=== PATIENT | female | born 1950 | race African-American/Black ===

== ENCOUNTER 2024-06-13 13:38 | Inpatient (IN) | payer MEDICARE, OTHER, SELFPAY ==
[2024-06-13] VITALS (20 sets, daily range): BP systolic 153–211; BP diastolic 82–180; BMI 32.7; BMI 32.0
--- NOTE | 2024-06-13 06:49 | ED.GENMED ---
History of Present Illness
General
Chief Complaint: Breathing Problem
Time Seen by Provider: 06/13/24 06:49
History of Present Illness
History of Present Illness:
73-year-old female presents emergency room due to shortness of breath, nausea, vomiting and intermittent chest pain. This feels similar to her CHF exacerbation
Past History
Past History
ED Past Medical History: CAD, Cancer (Colon cancer), CHF, COPD, HTN, Hypercholesterolemia, GA and Other (Anemia)
ED Past Surgical History: Bowel resection (Colon resection), Cardiac (CABG, 2019. [employer] Bi-V ICD, Pacer/defib, stent) and Gynecological (Hysterectomy)
Patient has exhibited threatening behavior?: No
PSI?: No
Social History
Tobacco: Former smoker (Quit in 1999)
Alcohol: None
Drug: None
Personal:
Living: with family
Family History
Family History: Other
Phy Exam
Physical Exam
Physical Exam:
Physical Exam
General: Mild distress, afebrile
Neck: supple. no meningeal signs. normal posterior pharynx
Heart: s1/s2 regular rate and rhythm, no murmur. equal radial
pulses. Pacemaker right upper chest
HEENT: Pupils equal round reactive to light, EOMI
Lungs: no acute respiratory distress. Rales at bases bilaterally
Abdomen: normal bowel sounds. not tender. no CVAT
Neuro: alert and oriented. no focal neurological deficits cranial nerves II through XII intact
Skin: no rash
Psychiatric: well kept. interactive and cooperative
Extremities: no edema. no calf tenderness. negative homans. good distal pulses
Scores
Heart Failure Risk
Heart Failure Risk Score: Yes
History of Stroke or TIA: No
History of intubation for respiratory distress: No
Heart rate on ED arrival >/= 110: No
SaO2 <90% on arrival on room air: No
HR >/=110 during 3min walk test (or too ill to perform test): Yes
ECG has acute ischemic changes: No
Urea >/=12mmol/L (BUN 33.6mg/dL): No
Serum CO2>/=35mmol/L: No
Troponin I or T elevated to GA Level (0.4mg/dL): No
NT-proBNP >/=5,000ng/L (5,000pg/ml): Yes
HF Risk Score: 3
Admission Status: HIGH RISK 15.9% Consider SNF treatment or admission to hospital
Heart Score for Chest Pain Patients
STEMI patient?: No
History: Moderately Suspicious
ECG: Nonspecific Repolarization
Age: >/= 65 years
Risk Factors: >/= 3 Risk Factors or History of CAD
Troponin: >1 - <3 x Normal Limit
Heart Score for Chest Pain Patients: 7
Heart Score Risk: 72.7 % MACE over next 6 weeks
Course
Orders/Labs/Results
Orders:
Orders
06/13/24
Electrocardiogram (*1) Stat
Reason for Study: Chest Pain
Comment: DONE
06/13/24 06:45
Electrocardiogram (*1) Urgent
Reason for Study: Other
Other Reason for Exam: Respiratory Distress
Cardiac Monitoring- Treatment ONCE
EKG- Treatment ONCE
IV Insert/Care/Rem.- Treatment PRN
O2 Therapy [RESP] Urgent
Titrate/Wean O2 to maintain O2 sat greater than (%): 93
Special Instructions: TO MAINTAIN CONTINUOUS O2 SATS >/= 93%
Pulse Ox/cont/shift [RESP] Urgent
Quantity: 1
Special Instructions: continuous pulse ox
06/13/24 06:52
Interrogate Pacemaker- Treatment ONCE
Comment: [employer]
06/13/24 07:02
Nitroglycerin Sublingual [Nitrostat (Sublingual)] 0.4 mg SL [id number] PRN
06/13/24 07:03
CR Chest Portable - 1 View Urgent
Comment:
Reason For Exam: short of breath, chest pain
Reason Study Needs to be Portable: Patient Unstable
06/13/24 07:07
Complete Blood Count/With Diff Urgent
Comprehensive Metabolic Panel Urgent
NT-proBNP Urgent
Troponin I Urgent
06/13/24 08:31
Azithromycin 500 mg/250 ml [Zithromax Infusion] 500 mg in 250 ml IV NOW
CefTRIAXone [Rocephin] 2,000 mg IV NOW STA
Furosemide [Lasix] 40 mg IV NOW STA
06/13/24 09:47
Lactic Acid Q4H
Comment: CANCEL 2nd LACTIC ACID IF 1st LACTIC ACID IS LESS THAN 2
Blood Culture Q30M
RONALD Source: Blood/Venous
Specimen Description:
Blood Culture Q30M
RONALD Source: Blood/Venous
Specimen Description:
06/13/24 11:12
Morphine Sulfate 4 mg IV NOW STA
06/13/24 11:13
Morphine Sulfate 4 mg .ROUTE .STK-MED ONE
06/13/24 11:25
Troponin I Urgent
06/13/24 12:45
Lactic Acid Q4H
Comment: CANCEL 2nd LACTIC ACID IF 1st LACTIC ACID IS LESS THAN 2
06/13/24 13:07
Admit/Transfer Patient As Directed
Co-Sign Provider:
Level of Care: Inpatient admission
Assign to:: Telemetry
Physician / Group: Malachi
Diagnosis: Pneumonia and possible CHF
Reason for Telemetry: Acute Heart Failure
Date to Stop Telemetry: 06/16/24
Time to Stop Telemetry: 11:00
Reason for Hospitalization: see progress note
Expected length of stay greater than two midnights?: Yes
ELOS- Estimated Length of Stay in days: 3
I certify the patient meets the requirements for IP care: Yes
06/13/24 13:08
PRN Pain Medication Management As Directed
May give lesser potent ordered pain med per pt: Yes
preference::
Protocol:: Medication orders for pain may be administered in a
manner that supports deferring to patient preference
when the pt is:
- Requesting an ordered lesser potent pain medication.
Least to most potent pain medications are defined
as: acetaminophen < NSAID < tramadol < opioids
(morphine, oxycodone, hydromorphone).
- Requesting a lesser dose of the same medication IF
ORDERED.
- Requesting a less intrusive route of administration
if both routes are prescribed by the provider (PO <
IV).
06/13/24 13:10
Code Status As Directed
Resuscitation Status: Full Code
06/13/24 13:26
Carvedilol [Coreg] 25 mg PO NOW STA
HydrALAZINE [Apresoline] 25 mg PO NOW STA
06/13/24 13:36
Acetaminophen [Tylenol] 650 mg PO Q4HPRN PRN
Morphine Sulfate 2 mg IV Q4HPRN PRN
Oxycodone [Roxicodone] 5 mg PO Q4HPRN PRN
06/16/24 11:00
DC Protocol for Telemetry ONCE
Abnormal Lab Results
06/13/24 06/13/24
07:07 11:25
WBC 12.7 H 10^3/uL
(4.8-10.8)
RDW 15.5 H %
(11.5-14.5)
MPV 11.0 H fL
(7.4-10.4)
Abs Immat Gran (auto) 0.1 H 10^3/uL
(0-0.05)
Absolute Neuts (auto) 9.7 H 10^3/uL
(1.4-6.5)
Absolute Monos (auto) 1.1 H 10^3/uL
(0.1-0.6)
Immature Gran % 0.6 H %
(0-0.5)
Neutrophils % 76.8 H %
(42.2-75.2)
Lymphocytes % 11.5 L %
(20.5-51.1)
BUN 18 H mg/dl
(7-17)
Glucose 156 H mg/dl
(70-99)
Total Bilirubin 1.8 H mg/dl
(0.2-1.3)
AST 51 H U/L
(14-36)
ALT 85 H U/L
(0-35)
Alkaline Phosphatase 203 H U/L
(38-126)
Troponin I 0.053 H* ng/ml 0.080 H* D ng/ml
06/13/24 07:07
06/13/24 07:07
Vital Signs
Initial and Last Documented VS:
Initial Vital Signs
Pulse Resp Pulse Ox
98 23 98
06/13/24 06:47 06/13/24 06:47 06/13/24 06:47
Last Documented Vital Signs
Temp Pulse Resp BP Pulse Ox
98.6 F 83 19 169/101 94
06/13/24 06:50 06/13/24 11:00 06/13/24 11:00 06/13/24 10:02 06/13/24 11:00
MDM/Problems Addressed
Differential Diagnosis Includes:
ACS, PE, CHF, pneumonia
MDM/Problems Addressed:
73-year-old female with right lower lobe pneumonia, CHF exacerbation, chest pain. IV Lasix, IV Rocephin and Zithromax given. Admit to hospitalist.
*Pulse Oximetry
Patient hypoxic: no
*EKG
Interpreted by ED Provider?: Yes
EKG Intrepretation Date: 06/13/24
EKG Intrepretation Time: 06:47
Interpretation: abnormal
Comparison EKG: no changes
Heart Rate: 91
Rate: normal
Rhythm: av sequential
[place]: normal axis
Interval: normal interval
QRS Pattern: left bundle branch block
Ischemia: no ischemia
*Critical Care Note
Total Time (30-74mins, 75-104mins- exclusive of procedures): Not Applicable
ED Attending Note
-
Portions of this chart may have been created with voice recognition software.� Occasional wrong word or��sound alike� substitutions may have occurred due to the inherent limitations of voice recognition software.
Discharge Plan
Departure
Patient Disposition: Admit
Date of Disposition: 06/13/24
Time of Disposition: 08:30
Admit to: Telemetry
Presentation/result/management discussed w/ accepting MD/DO: Hospitalist
Patient with high blood pressure during this ER visit?: Yes
Condition: Fair
Discharge Problem:
Right lower lobe pneumonia, Acute exacerbation of CHF (congestive heart failure)
Interventions
Interventions:
*Risk Screen - Suicide Last Done: 06/13/24 06:50
*General Assessment Last Done: 06/13/24 06:50
*Neglect/Abuse Screening Last Done: 06/13/24 06:50
ED- Fall Risk Assessment Last Done: 06/13/24 06:50
*ED COVID-19 Vaccine History Last Done: 06/13/24 06:50
[2024-06-13 07:17] LABS: % Basophils 0.2 % (0-2); % Eosinophils 2.1 % (0-6); % Immature Granulocytes 0.6 % (0-0.5); % Lymphocytes 11.5 % (20.5-51.1); % Monocytes 8.8 % (1.7-9.3); % Neutrophils 76.8 % (42.2-75.2); Absolute Eosinophils 0.3 10^3/uL (0-0.7); Absolute Immature Granulocytes 0.1 10^3/uL (0-0.05); Absolute Lymphocytes 1.5 10^3/uL (1.2-3.4); Absolute Monocytes 1.1 10^3/uL (0.1-0.6); Absolute Neutrophils 9.7 10^3/uL (1.4-6.5); Hematocrit 40.3 % (37.0-47.0); Hemoglobin 13.4 g/dL (12.0-16.0); Mean Corp Hgb Conc. 33.3 g/dL (33.0-37.0); Mean Corpuscular Hgb 29.4 pg (27.0-31.0); Mean Corpuscular Volume 88.4 fL (81.0-99.0); Nucleated Red Blood Cells % 0 %; Platelet Count 212 10^3/uL (130-400); Red Blood Cell Count 4.56 10^6/uL (4.20-5.40); Red Cell Dist. Width 15.5 % (11.5-14.5); White Blood Cell Count 12.7 10^3/uL (4.8-10.8)
[2024-06-13] MEDS: NITROSTAT (SUBLINGUAL) 0.4 MG SL (07:29)
[2024-06-13 07:35] LABS: ALT (SGPT) 85 U/L (0-35); AST (SGOT) 51 U/L (14-36); Albumin 4.8 g/dl (3.5-5.0); Alkaline Phosphatase 203 U/L (38-126); Blood Urea Nitrogen 18 mg/dl (7-17); Calcium 9.6 mg/dl (8.4-10.2); Carbon Dioxide 23 mmol/L (22-30); Chloride 106 mmol/L (98-107); Estimated Creatinine Clearance 54 ml/min; Glucose 156 mg/dl (70-99); Potassium 3.6 mmol/L (3.5-5.1); Sodium 141 mmol/L (135-145); Total Bilirubin 1.8 mg/dl (0.2-1.3); Total Protein 7.6 g/dl (6.3-8.2); eGFR > 60.00
[2024-06-13 08:14] LABS: NT-proBNP 6300 pg/ml; Troponin I 0.053 ng/ml
[2024-06-13] MEDS: LASIX 40 MG IV ×2 (10:02→18:53)
[2024-06-13] MEDS: ROCEPHIN 2000 MG IV (10:03)
[2024-06-13] MEDS: ZITHROMAX INFUSION 250 IV (10:03)
[2024-06-13 10:37] LABS: Lactic Acid 1.1 mmol/L (0.7-2.0)
[2024-06-13] MEDS: MORPHINE SULFATE 4 MG IV ×2 (11:17→13:54)
--- NOTE | 2024-06-13 13:17 | HPS.HSE ---
Family Physician
-
Family Physician: Calos Camilo
Chief Complaint
-
Shortness of breath
History of Present Illness
Patient with a history of CAD s/p CABG in history of cardiomyopathy s/p ICD presents with progressive shortness of breath.
It has been ongoing for the last 2 weeks. Associated with that she was feeling her energy levels were low and she was feeling very weak and in fact she was so weak in the last couple of days she was requiring help.
With a cardiac history she went to see proposal analyst twice and apparently had a stress test and she does not know the result and she is supposed to get another test.
She has a cough which is mostly dry. She has some nausea with it. She had some shakes but no fevers. No runny nose. Nobody sick at home.
Her baby sister got buried on Saturday and she was around with the people.
Denies history of pneumonias or lung disease.
Today she was so weak so she came in to hospital.
Since arrival to the hospital she has noticed some sudden chest pain which was 4 out of 10 now 10 out of 10. Is all around. It goes to her back. Goes to jawline in the neck and both arms. She is afraid to move because it brings on pain. Denies
any trauma. She got sublingual nitro which did not make any difference. She got morphine which is helping her. Since her CABG she had no angina.
Medical History
Past Medical History
Past Medical History: Reports Other
Additional Past Medical History:
CAD/RI
[employer] pacer/defibrillator
cardiac stent
CABG,
colon cancer colon resection
CHF COPD, HTN, HLD, anemia, former smoker quit 1998
Past Surgical History: Reports Other (Hysterectomy,[employer] Bi-V ICD pacer/defib 2018)
Social History
Tobacco: Former Smoker (quit 1998)
Alcohol: Occasional
Drug: None
Personal: Single
Living: With Family
Employment: Retired
Family History
Family History: Other (HTN)
Allergies / Home Medications
Allergies reflects when Allergies were last updated in [email or web address].
Home Medications with original date entered in [email or web address]
Allergy/Medication List:
Allergies
Allergy/AdvReac Type Severity Reaction Status Date / Time
Milk Containing Products Allergy Nasal Verified 08/09/22 12:20
congestion
Home Medications
furosemide 20 mg tablet 20 mg PO DAILY Fluid retention/Swelling 10/03/12
aspirin 81 mg tablet,delayed release 81 mg PO DAILY Blood clot prevention/tx 10/08/18
lorazepam 0.5 mg tablet 0.5 mg PO Q8HPRN PRN anxiety 10/08/18
Protonix 40 mg PO DAILY AT 0700 08/09/22
amlodipine 10 mg tablet 10 mg PO DAILY Blood pressure 08/09/22
atorvastatin 40 mg tablet 40 mg PO DAILY High cholesterol 08/09/22
carvedilol 12.5 mg tablet 25 mg PO BID Heart disease/condition 08/09/22
ezetimibe 10 mg tablet 10 mg PO DAILY High cholesterol 08/09/22
valsartan 160 mg tablet 160 mg PO DAILY Blood pressure 08/09/22
Review of Systems
-
A 12 point ROS was completed and negative except as noted: Yes
Physical Exam
Vital Signs
Vital Signs
Temp Pulse Resp BP Pulse Ox
98.6 F 83 19 169/101 94
06/13/24 06:50 06/13/24 11:00 06/13/24 11:00 06/13/24 10:02 06/13/24 11:00
Physical Exam
General: No Apparent Distress
HEENT: Moist mucous membranes
Respiratory: Crackles (Rt base), Non Labored Respirations and Other (Tender in upper anterior axillary line area . Also in mid posterior axillary area . She had more pain with movement of left arm.); No Wheezes or Accessory Resp Muscle Use
Cardiac: S1/S2 and Regular Rhythm
GI: Soft, Non Tender, Non Distended and Normal Bowel Sounds
Musculoskeletal: No Edema
Neuro: AO x 3
Psych: Calm; No Confused
Laboratory Results
-
06/13/24 07:07
06/13/24 07:07
Laboratory Results
Lactic Acid 1.1 mmol/L (0.7-2.0) 06/13/24 09:47
Total Bilirubin 1.8 mg/dl (0.2-1.3) H 06/13/24 07:07
AST 51 U/L (14-36) H 06/13/24 07:07
ALT 85 U/L (0-35) H 06/13/24 07:07
Alkaline Phosphatase 203 U/L (38-126) H 06/13/24 07:07
Troponin I 0.080 ng/ml H* D 06/13/24 11:25
Data Reviewed
-
Lab Data: Labs Reviewed by me
Impression/Plan
-
Shortness of breath-progress in the last 2 weeks now getting worse. She had some cardiac workup as an outpatient including apparently stress test. Patient was a chest x-rays raising concern for right basilar opacity and pneumonia. She also has
associated white count. Apart from that no other infective symptoms. She has also elevated BNP. Unclear if this is all pneumonia but pending culture data will start on empirical antibiotics. Also started on diuretics for possible heart failure
and follow the right basal infiltrate. Check procalcitonin.Hold HCTZ while on IV lasix.
Most recent echo was in 07/2022 with EF 50-55%
Left-sided chest pain started today-based on the clinical symptoms sounds musculoskeletal. 2 sets of troponin shows peak of 0.08. Trend troponins. Follow on telemetry. Treat symptomatically. Consult cardiology.
Abnormal LFTs with no abdominal pain-unclear etiology. Hold statins. Check ultrasound of the abdomen. Continue with the diet.
Hypertension-resume home medication
Hyperlipidemia hold statins
History of CAD s/p CABG-continue with aspirin and beta-zuleima
Full code
[2024-06-13] MEDS: TYLENOL 650 MG PO (13:54)
--- NOTE | 2024-06-13 15:05 | CON.CAR ---
Consultation
Consultation Request
Date/Time Consultation Requested: 06/13/2024 at 1:06 PM
Date/Time Consultation Performed: 06/13/2024 at 2:45 PM
Requesting Provider: Rodrigo Ly MD
Performing Provider: Nolan Meza MD
Reason for Consultation: concern for CHF exacerbation
Medical History
-
Chief Complaint: Shortness of breath
History of Present Illness:
Fany Ho is a 73-year-old female with CAD status post CABG in 2019, hypertension, hyperlipidemia, heart failure with preserved ejection fraction, BiV ICD who presents with shortness of breath. She reports that this has been ongoing for the
past several months and she is being worked up by her neurological surgeon Dr. Salcido at [facility]. She had a stress test last week which she was told was negative for ischemia. She was started on Lasix 40 mg daily about 2 weeks ago and this initially
helped with her shortness of breath but then she had outpatient labs done and was told to stop the Lasix on Saturday to 'give her kidneys a break'. Since then she has been feeling worse again. She denies lower extremity edema but says that she
does not build up fluid there and it is usually in her abdomen. She does feel mildly distended in her abdomen. She does not weigh herself at home. She did not get a chance to take her a.m. meds today and BP here is in the 200s/110s.
Past Medical History
Past Medical History: CAD (s/p CABG, PCI stent ), Cancer, CHF (HFpEF), HTN and Hypercholesterolemia
Social History
Tobacco: Non-Smoker
Family History
Family History: Reviewed & Not Pertinent
Allergies / Home Medications
Allergy/AdvReac Type Severity Reaction Status Date / Time
Milk Containing Products Allergy Nasal Verified 06/13/24 06:48
(Dairy) congestion
[Milk Containing Products]
cholesterol med Allergy Unknown Uncoded 06/13/24 06:49
�Medication �Instructions �Recorded �Confirmed �Type
aspirin 81 mg tablet,delayed 81 mg PO DAILY Blood clot 10/08/18 06/13/24 History
release prevention/tx
lorazepam 0.5 mg tablet 0.5 mg PO Q8HPRN PRN anxiety 10/08/18 06/13/24 History
atorvastatin 40 mg tablet 40 mg PO DAILY High cholesterol 08/09/22 06/13/24 History
carvedilol 12.5 mg tablet 25 mg PO BID Heart 08/09/22 06/13/24 History
disease/condition
ezetimibe 10 mg tablet 10 mg PO DAILY High cholesterol 08/09/22 06/13/24 History
pantoprazole 40 mg tablet,delayed 40 mg PO DAILY ##0 08/09/22 06/13/24 History
release
hydrochlorothiazide 25 mg tablet 25 mg PO DAILY 30 days #30 tabs 08/15/22 06/13/24 Rx
furosemide 40 mg tablet 40 mg PO DAILY 06/13/24 06/13/24 History
hydralazine 25 mg tablet 25 mg PO BID 06/13/24 06/13/24 History
Review of Systems
-
All other systems: Negative unless noted
Physical Exam
Vital Signs
Temp Pulse Resp BP Pulse Ox
98.6 F 83 19 169/101 94
06/13/24 06:50 06/13/24 11:00 06/13/24 11:00 06/13/24 10:02 06/13/24 11:00
Lab Results
06/13/24 07:07
06/13/24 07:07
Troponin I 0.080 ng/ml H* D 06/13/24 11:25
Sxv-U-Zwpiulpkaxe Pept 6300 pg/ml 06/13/24 07:07
Physical Exam
General: Well Developed and Well Nourished
Respiratory: Clear and Non Labored Respirations
Cardiac: S1/S2 and Regular Rhythm; Negative Murmur, Rub, Peripheral Edema or JVD
GI: Soft and Distended
Skin: Warm and Dry
Neuro: AO x 3
Impression / Plan
-
Fany Ho is a 73-year-old female with CAD status post CABG in 2019, hypertension, hyperlipidemia, heart failure with preserved ejection fraction, BiV ICD who presents with shortness of breath.
# Shortness of breath
-Likely multifactorial with mild HFpEF exacerbation (elevated NT proBNP, felt better with Lasix as an outpatient) and possible pneumonia based on chest x-ray and elevated WBC. There also may be some component of pulmonary edema due to hypertensive
emergency (BPs 210s/110s on admission)
-Will diurese with IV Lasix 40 mg twice daily to start. Suspect that she does not have a lot of volume to give as her weight is stable from 2022 and lungs are clear.
-Antibiotics for pneumonia per primary team
-Unlikely to be an anginal equivalent given reportedly normal stress test 1 week ago and very mildly elevated troponins
# Hypertensive urgency versus emergency
-BPs 210s/110s on admission with shortness of breath as above
-Home regimen: Carvedilol 25 mg twice daily, hydralazine 25 mg twice daily
-Resume home meds as above. May need further up titration during this admission
# Troponin elevation due to nonischemic myocardial injury
-Troponin elevation is likely due to severely elevated blood pressures +/- HFpEF exacerbation
-Trend until peak
# HFpEF
-Last echo in 2022 with LVEF 50-55% and moderate to severe LVH. More recent echo with her primary neurological surgeon. Will request these records.
-Diuresis as above
-Consider adding SGLT2 inhibitor and spironolactone. Will consult case management for pricing.
# CAD status post CABG
-Continue aspirin set OR and atorvastatin 40 mg daily
Data Reviewed
-
EKG: Tracing Personally Visualized and interpreted, Discussed with Patient and Discussed with Family
Radiology: Image Personally Visualized and interpreted, Discussed with Patient and Discussed with Family
Medical Tests (Nuc Med, Echo etc): Report Reviewed by me
Labs: Labs Reviewed by me, Discussed with Patient and Discussed with Family
[2024-06-13] MEDS: APRESOLINE 25 MG PO ×2 (15:16→20:31)
[2024-06-13 17:22] LABS: COVID-19 Antigen Negative (Negative)
[2024-06-13] MEDS: COREG 25 MG PO ×2 (17:34→20:31)
--- NOTE | 2024-06-13 18:30 | PTCARENOTE ---
received patient from ED, transferred to bed as patient said she was too weak to stand and walk. placed on tele monitor showing Vpaced rhythm. BP noted to be 185/107. Dr Ly notified and orders obtained for prn hydralazine which was given. plan
of care on going.
[2024-06-13] MEDS: PROTONIX 40 MG PO (18:54)
[2024-06-13] MEDS: LOVENOX 40 MG SC (18:54)
[2024-06-13] MEDS: ASPIR LOW (ENTERIC COATED) 81 MG PO (18:54)
[2024-06-13] MEDS: APRESOLINE 5 MG IV (18:54)
[2024-06-13] MEDS: FLUSH (NSS) 2 FLUSH IV (18:56)
--- NOTE | 2024-06-13 18:58 | EDRN ---
174 - attempted to contact hospitalist Dr. Ly for antiemetic orders as patient vomited 200ml clear liquids that she had drank earlier, and potential further BP medication orders. Dr. Ly no longer on duty.
1745 - attempted to contact the [facility] hospitalist, forwarding the same message Malachi was sent to Dr. Radha Arguelles. Initially the doctor requested this RN to contact the covering CONSTRUCTION COST ESTIMATOR/PA/ attending. Informed him that it was Dr. Ly who is no
longer on duty.
1755 - Dr. Ly responded stating the floor nurse could call him while off duty if the [facility] doctor will not provide orders.
1801 - requested clarification from Dr. Radha Arguelles if he was going to be adding orders at the present time.
1814 - Dr. Radha Arguelles informed this RN that the patient has PO medications that she can take and if BP still high then will add IV medications. Did not specify if he would address the nausea and vomiting the patient experienced.
[2024-06-13 20:19] LABS: Troponin I 0.062 ng/ml
[2024-06-13] MEDS: VIBRAMYCIN 100 MG PO (20:31)
[2024-06-13] MEDS: BENADRYL 6.25 MG IV (20:31)
[2024-06-14 02:25] LABS: Troponin I 0.048 ng/ml
[2024-06-14 03:54] VITALS: BP 164/95
[2024-06-14] MEDS: APRESOLINE 5 MG IV (04:08)
[2024-06-14 06:00] VITALS: BMI 31.4
[2024-06-14 07:55] VITALS: BP 167/101
[2024-06-14] MEDS: LASIX 40 MG IV ×2 (10:20→16:22)
[2024-06-14] MEDS: PROTONIX 40 MG PO (10:21)
[2024-06-14] MEDS: VIBRAMYCIN 100 MG PO ×2 (10:21→19:53)
[2024-06-14] MEDS: ZETIA 10 MG PO (10:21)
[2024-06-14] MEDS: APRESOLINE 25 MG PO ×2 (10:21→19:54)
[2024-06-14] MEDS: COREG 25 MG PO ×2 (10:21→19:54)
[2024-06-14] MEDS: ASPIR LOW (ENTERIC COATED) 81 MG PO (10:21)
--- NOTE | 2024-06-14 10:59 | CM ---
Patient with Hx of cardiomyopathy s/p ICD. Room air. Receiving PO & IV Abx, IV Lasix.
Met with patient who resides with her in a first floor apartment with 5 JAVIER and an additional 4 into their dwelling.
The patient has been independent in ADLs and ambulation until yesterday when she felt SOB and weak and required assistance.
DME - RW, [facility], w/c
Prior VN - patient thought [facility], chart says [facility]
SNF- none
PCP - Calos Camilo
Pharmacy - [facility]
CM Consult: Ochoa Check Farxiga (dapaglifloxin) 10mg daily, Jardiance (empagliflozin) 10mg daily
Spoke with pharmacist, [facility]: These 2 drugs are only covered if brand names are ordered, Farxiga and Jardiance have no copay, and only 1 drug is covered at a time but not both.
Information relayed to Dr Meza and patient.
Message to Dr Ly---> patient may benefit from PT Eval.
Plan follow up after seen by PT.
[2024-06-14] MEDS: TYLENOL 650 MG PO (11:29)
[2024-06-14] MEDS: STERILE WATER FOR INJECTION 10 ML IV (11:29)
[2024-06-14 11:30] VITALS: BP 170/89
[2024-06-14] MEDS: ROCEPHIN 1000 MG IV (11:30)
--- NOTE | 2024-06-14 12:41 | W.PN.CD ---
Today's Communication / Plan
-
Continue Lasix 40 mg IV twice daily pending labs
Start spironolactone and SGLT2 inhibitor pending labs
Monitor BPs
Impression / Plan
-
Fany Ho is a 73-year-old female with CAD status post CABG in 2019, hypertension, hyperlipidemia, heart failure with preserved ejection fraction, BiV ICD who presents with shortness of breath.
[employer]: Dr. Salcido, [facility]
# Shortness of breath
# Acute on chronic HFpEF
-Dyspnea is likely multifactorial with mild HFpEF exacerbation and possible pneumonia
-Last echo in 2022 with LVEF 50-55% and moderate to severe LVH. 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 Will request these records.
-Continue IV Lasix 40 mg twice daily pending labs
-Antibiotics for pneumonia per primary team
-Start spironolactone and SGLT2 inhibitor pending a.m. labs
# Hypertensive urgency versus emergency
-BPs 210s/110s on admission with shortness of breath as above
-Home regimen: Carvedilol 25 mg twice daily, hydralazine 25 mg twice daily
-Continue home regimen. Add spironolactone as above and reassess. May need additional meds.
# Troponin elevation due to nonischemic myocardial injury
-Troponin elevation is likely due to severely elevated blood pressures +/- HFpEF exacerbation
-Peaked at 0.08. Can stop trending.
# CAD status post CABG
-Continue aspirin, ezetimibe and atorvastatin 40 mg daily
Subjective: Feels slightly improved today though still short of breath with any movement. Telemetry with no events overnight. Blood pressure remains elevated in the 160s/100s. Weight is 81.7 kg from 83.2 kg. She received Lasix 40 mg IV twice
daily yesterday. Labs are pending from today.
Physical Exam
Vital Signs/Labs
Vital Signs
Temp Pulse Resp BP Pulse Ox
98.1 F 88 16 170/89 97
06/14/24 11:30 06/14/24 11:30 06/14/24 11:30 06/14/24 11:30 06/14/24 11:30
06/13/24 06/14/24 06/15/24
06:59 06:59 06:59
Actual Weight 85 kg 81.675 kg
06/13/24
07:07
Siw-N-Lbqwiizozng Pept 6300
LAB Results
06/13/24 06/13/24 06/13/24
07:07 11:25 19:49
Troponin I 0.053 H* 0.080 H* D 0.062 H*
06/14/24
01:53
Troponin I 0.048 H*
Physical Exam
Constitutional: No acute distress and Comfortable
Cardiovascular: Rhythm & rate is regular, Pedal edema is absent, S1S2 is normal and Murmur/rub/gallop absent
Respiratory: Respiratory effort normal and Lungs clear to auscul.
Data Reviewed
-
Date of Service: June 14, 2024
Medical Decision Making: Reviewed Test Results, Independent Historian Assessment, Test Interpretation and Review of Case with other Provider
EKG: Tracing Personally Visualized and interpreted
Echo: Report Reviewed by me
Labs: Labs Reviewed by me
Old Records: Requested
[2024-06-14 13:05] LABS: Hematocrit 40.8 % (37.0-47.0); Hemoglobin 13.5 g/dL (12.0-16.0); Mean Corp Hgb Conc. 33.1 g/dL (33.0-37.0); Mean Corpuscular Volume 87.6 fL (81.0-99.0); Platelet Count 208 10^3/uL (130-400); Red Blood Cell Count 4.66 10^6/uL (4.20-5.40); Red Cell Dist. Width 15.6 % (11.5-14.5); White Blood Cell Count 10.4 10^3/uL (4.8-10.8)
[2024-06-14 13:19] LABS: ALT (SGPT) 64 U/L (0-35); AST (SGOT) 40 U/L (14-36); Albumin 4.4 g/dl (3.5-5.0); Alkaline Phosphatase 155 U/L (38-126); Blood Urea Nitrogen 26 mg/dl (7-17); Calcium 9.6 mg/dl (8.4-10.2); Carbon Dioxide 25 mmol/L (22-30); Chloride 102 mmol/L (98-107); Estimated Creatinine Clearance 48 ml/min; Glucose 165 mg/dl (70-99); Potassium 3.4 mmol/L (3.5-5.1); Sodium 138 mmol/L (135-145); Total Bilirubin 1.2 mg/dl (0.2-1.3); Total Protein 7.3 g/dl (6.3-8.2); eGFR 53.72
[2024-06-14 13:34] LABS: Procalcitonin 0.16 ng/ml (0.0-0.25)
[2024-06-14] MEDS: ALDACTONE 25 MG PO (14:00)
[2024-06-14 15:30] VITALS: BP 121/71
--- NOTE | 2024-06-14 15:33 | W.PN.HOSP.TC ---
Today's Communication/Plan
-
Continue with IV Lasix.
Follow LFTs closely.
Assessment / Plan
Assessment / Plan
Shortness of breath-progress in the last 2 weeks now getting worse. She had some cardiac workup as an outpatient including apparently stress test. Patient was a chest x-rays raising concern for right basilar opacity and pneumonia. She also has
associated white count. Apart from that no other infective symptoms. She has also elevated BNP. Unclear if this is all pneumonia but pending culture data will start on empirical antibiotics.Procal is normal. Also started on diuretics for
possible heart failure and follow the right basal infiltrate. .Hold HCTZ while on IV lasix.
Appt cards input
Most recent echo was in 07/2022 with EF 50-55%
Left-sided chest pain started today-based on the clinical symptoms sounds musculoskeletal. 4 sets of troponin shows peak of 0.08. ollow on telemetry. Treat symptomatically. Cardiology following
Abnormal LFTs with no abdominal pain-unclear etiology. Hold statins. ultrasound of the abdomen shows gallbladder sludge. No stones or CBD dilatation. Improving LFTs.. Continue with the diet.
Hypertension-resume home medication
Hyperlipidemia hold statins
History of CAD s/p CABG-continue with aspirin and beta-zuleima
Full code
Anticipated Discharge: 24 - 48 hours
Subjective/Interval History
-
Date of Service: June 14, 2024
Says breathing improved.
Complains of sore throat. Cough with some phlegm.
The left-sided chest and back pain has improved.
Last night she was complaining of vomiting. At home she was feeling bloated. Some decreased appetite. She was able to eat something today. She had 1 bowel movement yesterday.
Objective Data
-
Labs:
Laboratory Results
06/14/24
12:53
WBC 10.4
Hgb 13.5
Hct 40.8
Plt Count 208
Sodium 138
Potassium 3.4 L
Chloride 102
Carbon Dioxide 25
BUN 26 H
Creatinine 1.1 H
Glucose 165 H
Calcium 9.6
Total Bilirubin 1.2
AST 40 H
ALT 64 H
Alkaline Phosphatase 155 H
Vital Signs:
Vital Signs
Temp Pulse Resp BP Pulse Ox
98.1 F 86 16 170/82 97
06/14/24 11:30 06/14/24 14:00 06/14/24 11:30 06/14/24 14:00 06/14/24 11:30
I&O
06/13/24 06/14/24 06/15/24
06:59 06:59 06:59
Intake Total 240 / 240
Balance 240 / 240
Review of Systems
-
Constitutional: Denies Fever
Abdomen/GI: Denies Abdominal Pain
Genitourinary: Denies Dysuria
Neuro: Denies Dizzy
Physical Exam
-
General: No Apparent Distress
HEENT: Moist Mucous Membranes
Respiratory: Clear to Auscultation
Cardiac: Regular Rhythm and S1/S2
GI: Soft and Nontender (no RUQ tenderness)
Neuro: AO x 3
Data Reviewed
-
Ultrasound: Report Reviewed by me (US abdomen)
Labs: Labs Reviewed by me
[2024-06-14] MEDS: KCL 40 MEQ PO (16:22)
[2024-06-14] MEDS: LOVENOX 40 MG SC (17:54)
[2024-06-14 19:50] VITALS: BP 136/69
[2024-06-14] MEDS: ATIVAN 0.5 MG PO (19:54)
[2024-06-14] MEDS: ROXICODONE 5 MG PO (23:32)
[2024-06-14 23:45] VITALS: BP 120/58
[2024-06-15 03:26] VITALS: BP 129/93
[2024-06-15 06:00] VITALS: BMI 31.7
[2024-06-15 07:06] VITALS: BP 148/97
[2024-06-15 07:47] LABS: Hematocrit 39.9 % (37.0-47.0); Hemoglobin 13.3 g/dL (12.0-16.0); Mean Corp Hgb Conc. 33.3 g/dL (33.0-37.0); Mean Corpuscular Hgb 29.3 pg (27.0-31.0); Mean Corpuscular Volume 87.9 fL (81.0-99.0); Mean Platelet Volume 11.3 fL (7.4-10.4); Platelet Count 225 10^3/uL (130-400); Red Blood Cell Count 4.54 10^6/uL (4.20-5.40); Red Cell Dist. Width 15.7 % (11.5-14.5); White Blood Cell Count 9.2 10^3/uL (4.8-10.8)
[2024-06-15 08:14] LABS: ALT (SGPT) 56 U/L (0-35); AST (SGOT) 37 U/L (14-36); Albumin 4.4 g/dl (3.5-5.0); Alkaline Phosphatase 150 U/L (38-126); Blood Urea Nitrogen 39 mg/dl (7-17); Calcium 9.6 mg/dl (8.4-10.2); Carbon Dioxide 22 mmol/L (22-30); Chloride 105 mmol/L (98-107); Estimated Creatinine Clearance 31 ml/min; Glucose 114 mg/dl (70-99); Potassium 4.1 mmol/L (3.5-5.1); Sodium 139 mmol/L (135-145); Total Protein 7.1 g/dl (6.3-8.2); eGFR 31.86
--- NOTE | 2024-06-15 08:50 | W.PN.CD ---
Today's Communication / Plan
-
hold diuresis
cont. ismael
TTE
Impression / Plan
-
Fany Ho is a 73-year-old female with CAD status post CABG in 2019, hypertension, hyperlipidemia, heart failure with preserved ejection fraction, BiV ICD who presents with shortness of breath.
Director Of Physical Security: Dr. Salcido, [facility]
# BERNICE
-overdiuresis +/- addition of spio?
-will hold diuresis today
# Shortness of breath
# Acute on chronic HFpEF
-Dyspnea is likely multifactorial with mild HFpEF exacerbation and possible pneumonia
-Last echo in 2022 with LVEF 50-55% and moderate to severe LVH. 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 Will request these records. TTE today.
-lasix 40 IV yesterday, hold diuresis today in setting of BERNICE
-Antibiotics for pneumonia per primary team
-cont. aldactone, consider further GDMT pending renal recovery
# Hypertensive urgency versus emergency
-BPs 210s/110s on admission with shortness of breath as above
-better controlled overnight
-Home regimen: Carvedilol 25 mg twice daily, hydralazine 25 mg twice daily
-Continue home regimen + aldactone
# Troponin elevation due to nonischemic myocardial injury
-Troponin elevation is likely due to severely elevated blood pressures +/- HFpEF exacerbation
-Peaked at 0.08. Can stop trending.
# CAD status post CABG
-Continue aspirin, ezetimibe and atorvastatin 40 mg daily
Subjective: Feels slightly improved today though still some orthopnea. Blood pressure elevated overnight but controlled this morning. Weight up about ~0.5 kg. She received Lasix 40 mg IV twice daily yesterday.
Physical Exam
Vital Signs/Labs
Vital Signs
Temp Pulse Resp BP Pulse Ox
36.6 C 63 20 129/93 97
06/15/24 03:26 06/15/24 03:26 06/15/24 03:26 06/15/24 03:26 06/15/24 03:26
06/14/24 06/15/24 06/16/24
06:59 06:59 06:59
Actual Weight 81.675 kg 82.327 kg
06/15/24 07:25
06/15/24 07:25
06/13/24
07:07
Pub-H-Zyicqvzhvmi Pept 6300
LAB Results
06/13/24 06/13/24 06/13/24
07:07 11:25 19:49
Troponin I 0.053 H* 0.080 H* D 0.062 H*
06/14/24
01:53
Troponin I 0.048 H*
Physical Exam
Constitutional: No acute distress
Cardiovascular: Rhythm & rate is regular
Respiratory: Respiratory effort normal
Data Reviewed
-
Date of Service: June 15, 2024
Medical Decision Making: Reviewed Test Results
EKG: Tracing Personally Visualized and interpreted
X-Ray/CT/US/MRI/NUC/PET: Image Personally Visualized and interpreted
Labs: Labs Reviewed by me
[2024-06-15] MEDS: APRESOLINE 25 MG PO ×2 (09:06→20:04)
[2024-06-15] MEDS: VIBRAMYCIN 100 MG PO ×2 (09:06→20:03)
[2024-06-15] MEDS: ALDACTONE 25 MG PO (09:07)
[2024-06-15] MEDS: ZETIA 10 MG PO (09:07)
[2024-06-15] MEDS: PROTONIX 40 MG PO (09:07)
[2024-06-15] MEDS: COREG 25 MG PO ×2 (09:07→20:03)
[2024-06-15] MEDS: ASPIR LOW (ENTERIC COATED) 81 MG PO (09:08)
[2024-06-15] MEDS: TYLENOL 650 MG PO (09:09)
[2024-06-15] MEDS: LASIX IV (09:11)
[2024-06-15 11:45] VITALS: BP 155/83
[2024-06-15] MEDS: ROCEPHIN 1000 MG IV (12:45)
[2024-06-15] MEDS: STERILE WATER FOR INJECTION 10 ML IV (12:45)
--- NOTE | 2024-06-15 14:33 | W.PN.HOSP.TC ---
Today's Communication/Plan
-
Hold diuretics. Follow creatinine.
Repeat chest x-ray. Echo pending.
Consult GI.
Assessment / Plan
Assessment / Plan
Shortness of breath-progress in the last 2 weeks now getting worse. She had some cardiac workup as an outpatient including apparently stress test. Patient was a chest x-rays raising concern for right basilar opacity and pneumonia. She also has
associated white count. Apart from that no other infective symptoms. Procal is normal . Flu/covid/blood cx neg .Unclear if this is all pneumonia . Lost wt with diuresis .Rpt CXR to follow on the opacity ,if it all resolved will dc abx
Acute CHF decompensation
Most recent echo was in 07/2022 with EF 50-55%
Lost 6 pounds of weight. Diuretics on hold because of elevation of creatinine. Spironolactone added. Echo pending. Cardiology following.
Indeterminate troponins-suspected nonischemic myocardial injury. Patient without chest pain.
Left-sided chest pain started today-based on the clinical symptoms sounds musculoskeletal. 4 sets of troponin shows peak of 0.08. Treat symptomatically. Cardiology following
BERNICE
Suspect secondary to overdiuresis. Diuretics on hold.
Repeat in AM.
Abnormal LFTs with no abdominal pain-unclear etiology. Hold statins. ultrasound of the abdomen shows gallbladder sludge. No stones or CBD dilatation. Improving LFTs.. Continue with the diet. Consult GI for an opinion.
Hypertension-resume home medication
Hyperlipidemia hold statins
History of CAD s/p CABG-continue with aspirin and beta-zuleima
Full code
Anticipated Discharge: 24 - 48 hours
Subjective/Interval History
-
Date of Service: June 15, 2024
Patient feels less short of breath. Able to walk to the bathroom but still notices some shortness of breath.
No chest pains or palpitations.
No further vomiting. [place] nauseous but able to tolerate diet. Denies abdominal pain.
Has not had a bowel movement. Feels constipated.
Objective Data
-
Labs:
Laboratory Results
06/15/24
07:25
WBC 9.2
Hgb 13.3
Hct 39.9
Plt Count 225
Sodium 139
Potassium 4.1
Chloride 105
Carbon Dioxide 22
BUN 39 H
Creatinine 1.7 H
Glucose 114 H
Calcium 9.6
Total Bilirubin 1.0
AST 37 H
ALT 56 H
Alkaline Phosphatase 150 H
Vital Signs:
Vital Signs
Temp Pulse Resp BP Pulse Ox
98.1 F 69 22 155/83 98
06/15/24 11:45 06/15/24 11:45 06/15/24 11:45 06/15/24 11:45 06/15/24 11:45
I&O
06/14/24 06/15/24 06/16/24
06:59 06:59 06:59
Intake Total 240 / 240 840 / 840
Output Total 850 / 850 475 / 475
Balance -610 / -610 365 / 365
Review of Systems
-
Constitutional: Denies Fever or Chills
EENT: Denies Sore Throat
Neuro: Denies Dizzy
Physical Exam
-
General: No Apparent Distress
Respiratory: Clear to Auscultation and Non Labored Respirations; Negative Wheezes, Crackles or Accessory Resp Muscle Use
Cardiac: Regular Rhythm and S1/S2
GI: Soft and Nontender
Neuro: AO x 3
Psych: Calm; Negative Confused
Data Reviewed
-
Labs: Labs Reviewed by me
--- NOTE | 2024-06-15 15:04 | CON.GI ---
Addendum entered and electronically signed by Colette Tracy MD 06/15/24 16:37:
I saw and examined the patient.
The SENIOR SOFTWARE ARCHITECT or PA's note was reviewed and I agree with the note.
Comment: 73-year-old female with history of CAD status post stents, pacemaker/defibrillator, history of congestive heart failure with underlying cardiomyopathy, history of colon cancer status post resection without radiation or chemo in 2013 at [facility] presenting with shortness of breath in the last couple of days. While she is admitted here, she was noted to have elevated transaminases and alkaline phosphatase and GI consult was called in to evaluate. During reviewing her LFTs, until
2022 normal LFTs except elevation in alkaline phosphatase with normal bilirubin but on admission total bilirubin was 1.8, AST was 51, ALT of 85, alkaline phosphatase of 203. Now trending down and bilirubin normalized, AST is 37, ALT of 56 and
alkaline phosphatase of 150. Denies any history of hepatitis, jaundice, underlying liver disease, previous known elevation in LFTs, IV drug abuse but reports blood transfusion likely when she had resection of the colon cancer. She is on statin as
an outpatient and did receive antibiotics during hospital stay. Currently she is admitted with acute on chronic congestive heart failure and diuresed with diuretics on hold for elevated creatinine.
No GI symptoms -no abdominal pain, nausea or vomiting. No heartburn or trouble swallowing. Bowel pattern is usually 1 formed stool a day, no pushing or straining. No blood in the stool or black stool. No unintentional weight loss. Last
colonoscopy about 5 years ago no polyps as per patient. She has not follow-up with her GI at [facility] in 5 years. She reports having 2 colonoscopies after her colon cancer resection in 2013. No evidence of anemia on labs. No smoking or
alcohol use.
-Elevated LFTs on admission and currently trending down . Abdominal ultrasound showing mild gallbladder sludge, no evidence of biliary ductal dilation and prior CT scan showing fatty liver.
Multiple etiologies for elevated LFTs including statin use/acute on chronic congestive heart failure/antibiotic use versus other
She does have mild chronic elevation in alkaline phosphatase.
Agree with hepatitis A/B/C serologies and continue to trend LFTs. LFTs trending down, repeat in 2 weeks again to check for normalization. If continue to be elevated, then will do blood work for underlying liver disease panel at that time. This
can be done as an outpatient.
Hold statin for now but wants LFTs normalize, can restart.
-History of colon cancer and she is overdue for colonoscopy.
We will follow-up with her as an outpatient and schedule her for colonoscopy as well.
Will follow for now.
Original Note:
Consultation
-
Date/Time Consultation Requested: 06/15/24 1400
Date/Time Consultation Performed: 06/15/24 1500
Requesting Provider: Rodrigo Ly MD
Performing Provider: BELL Chowdhury, Colette Tracy MD
Reason for Consultation: increased LFT's
Medical History
Chief Complaint / HPI
Chief Complaint: shortness of breath
History of Present Illness:
Pt is a 73yo with hx CAD, prior ND, stent, pacer/defib, cardiomyopathy, colon CA with resection 2012 at [facility] no chemo needed, CHF, COPD, HTN, hypercholesterolemia with admission 06/13 with shortness of breath, nausea, vomiting and chest
pain with initial concern for PNA and acute on chronic HFpEF with elevated troponin on admission. She has been given diuretic during admission now asked to see for elevated LFT's. In review with chronic some chronic alk phos elevation but now with
claude 1.8, AST 51, ALT 85, alk phos [address] imaging with fatty liver and US on admission with Mild gallbladder sludge. Top normal caliber of the common bile duct. Hepatic steatosis.
She denies hx liver problems, hepatitis, IVDA, tattoos, or excessive Tylenol use. She did not recall prior hepatitis vaccination. She otherwise admits to nausea and vomiting prior to admission but denies issues with abdominal pain, diarrhea,
constipation or rectal bleeding. Last colonoscopy was about 5 years ago.
Past Medical History
Past Medical History: CAD, Cancer (colon CA with resection), CHF, COPD, HTN, Hypercholesterolemia, ND and Other (anemia, cardiomyopathy)
Past Surgical History: Cardiac (pacer/defib, stent )
Social History
Tobacco: Former Smoker
Alcohol: None
Drug: None
Living: With Family
Employment: Retired
Family History
Family History: Other (mother with polyps)
Allergies / Home Medications
Allergy/AdvReac Type Severity Reaction Status Date / Time
Milk Containing Products Allergy Nasal Verified 06/13/24 06:48
(Dairy) congestion
[Milk Containing Products]
cholesterol med Allergy Unknown Uncoded 06/13/24 06:49
�Medication �Instructions �Recorded
aspirin 81 mg tablet,delayed 81 mg PO DAILY Blood clot 10/08/18
release prevention/tx
lorazepam 0.5 mg tablet 0.5 mg PO Q8HPRN PRN anxiety 10/08/18
atorvastatin 40 mg tablet 40 mg PO DAILY High cholesterol 08/09/22
carvedilol 12.5 mg tablet 25 mg PO BID Heart 08/09/22
disease/condition
ezetimibe 10 mg tablet 10 mg PO DAILY High cholesterol 08/09/22
pantoprazole 40 mg tablet,delayed 40 mg PO DAILY Gastrointestinal 08/09/22
release Issue ##0
hydrochlorothiazide 25 mg tablet 25 mg PO DAILY 30 days #30 tabs 08/15/22
furosemide 40 mg tablet 40 mg PO DAILY Blood Pressure 06/13/24
hydralazine 25 mg tablet 25 mg PO BID Blood Pressure 06/13/24
Review of Systems
-
History Source: Patient
Constitutional: Reports Weight Loss (with diuresis )
EENT: Reports No Symptoms
Respiratory: Reports Trouble Breathing (on admission )
Cardiac: Reports Chest Pain (on admission )
Abdomen/GI: Reports Nausea and Vomiting (prior to admission)
: Reports No Symptoms
Musculoskeletal: Reports No Symptoms
Skin: Reports No Symptoms
Neurological: Reports No Symptoms
Endocrine: Reports No Symptoms
Hematologic/Lymphatic: Reports No Symptoms
Vital Signs
Temp Pulse Resp BP Pulse Ox
98.1 F 69 22 155/83 98
06/15/24 11:45 06/15/24 11:45 06/15/24 11:45 06/15/24 11:45 06/15/24 11:45
Physical Exam
Exam
General: Well Developed, Well Nourished and No Apparent Distress
HEENT: Normocephalic and Anicteric
Respiratory: Clear
Cardiac: Regular Rhythm
GI: Soft, Non Tender and Non Distended
Musculoskeletal: No Clubbing and No Cyanosis
Skin: Warm and Dry
Neuro: Awake, Alert and AO x 3
Psych: Calm
Results
WBC 9.2 10^3/uL (4.8-10.8) 06/15/24 07:25
Hgb 13.3 g/dL (12.0-16.0) 06/15/24 07:25
Hct 39.9 % (37.0-47.0) 06/15/24 07:25
MCV 87.9 fL (81.0-99.0) 06/15/24 07:25
Plt Count 225 10^3/uL (130-400) 06/15/24 07:25
Absolute Neuts (auto) 9.7 10^3/uL (1.4-6.5) H 06/13/24 07:07
Sodium 139 mmol/L (135-145) 06/15/24 07:25
Potassium 4.1 mmol/L (3.5-5.1) 06/15/24 07:25
Chloride 105 mmol/L (98-107) 06/15/24 07:25
Carbon Dioxide 22 mmol/L (22-30) 06/15/24 07:25
BUN 39 mg/dl (7-17) H 06/15/24 07:25
Creatinine 1.7 mg/dL (0.6-1.0) H 06/15/24 07:25
Calcium 9.6 mg/dl (8.4-10.2) 06/15/24 07:25
Total Bilirubin 1.0 mg/dl (0.2-1.3) 06/15/24 07:25
AST 37 U/L (14-36) H 06/15/24 07:25
ALT 56 U/L (0-35) H 06/15/24 07:25
Alkaline Phosphatase 150 U/L (38-126) H 06/15/24 07:25
Diagnostic Image Results:
06/14/24 -Mild gallbladder sludge. Top normal caliber of the common bile duct. Hepatic steatosis.
Prior GI Procedures:
Colonoscopy: last 5 years ago at [facility]
Assessment / Plan
-
Pt is a 73yo with hx CAD, prior ND, stent, pacer/defib, cardiomyopathy, colon CA with resection 2012 at [facility] no chemo needed, CHF, COPD, HTN, hypercholesterolemia with admission 06/13 with shortness of breath, nausea, vomiting and chest
pain with initial concern for PNA and acute on chronic HFpEF with elevated troponin on admission. She has been given diuretic during admission now asked to see for elevated LFT's. In review with chronic some chronic alk phos elevation but now
with claude 1.8, AST 51, ALT 85, alk phos [address] imaging with fatty liver and US on admission with Mild gallbladder sludge. Top normal caliber of the common bile duct. Hepatic steatosis.
-elevated LFT's with some chronic alk phos elevation
-imaging with hepatic steatosis
-hx colon CA with prior resection 2012
-acute on chronic HFpEF
-CXR with possible PNA
-BERNICE
-HTN urgency on admission
-mild troponin increase
other med problems:
-family hx colon polyps
-CAD
-hx ND prior stent
-pacer/defib
-Cardiomyopathy
-COPD
-HTN
-hypercholesterolemia
PLAN:
etiology of acute rise in LFT's related to hepatic congestion with acute on chronic HF on admission vs other
cont to trend labs-- currently trending down
pt with some chronic alk phos elevation prior to admission
hep C pending will add hep A and B-- consider vaccination if not immune
OP follow up if does not normalize consider serology work up
OP fibroscan
also discussed OP follow up as will need colonoscopy follow up for hx colon CA
cont abx for PNA and diuretics for heart failure
statin remain on hold-- resume if LFT trend continue to improved
-
-
Thank you for consultation and allowing me to participate in the patient's care. Please call the watermelon harvesting supervisor GI physician during the after hours with any questions or concerns.
[2024-06-15] MEDS: MIRALAX 17 GRAMS PO (16:35)
[2024-06-15] MEDS: COLACE 100 MG PO ×2 (16:35→20:04)
[2024-06-15 17:20] VITALS: BP 147/72
[2024-06-15 18:05] LABS: Hepatitis C Antibody Negative (Negative)
[2024-06-15] MEDS: LOVENOX SC ×2 (18:06→18:09)
[2024-06-15] MEDS: ATIVAN 0.5 MG PO (18:06)
[2024-06-15] MEDS: LOVENOX 40 MG SC (19:24)
[2024-06-15 19:55] VITALS: BP 144/82
[2024-06-15 23:48] VITALS: BP 144/67
[2024-06-16 03:19] VITALS: BP 145/73
[2024-06-16] MEDS: MORPHINE SULFATE 2 MG IV (05:37)
[2024-06-16 06:00] VITALS: BMI 32.0
[2024-06-16 07:22] VITALS: BP 128/89
[2024-06-16] MEDS: VIBRAMYCIN 100 MG PO (08:58)
[2024-06-16] MEDS: ASPIR LOW (ENTERIC COATED) 81 MG PO (08:59)
[2024-06-16] MEDS: COLACE 100 MG PO (08:59)
[2024-06-16] MEDS: COREG 25 MG PO (08:59)
[2024-06-16] MEDS: MIRALAX 17 GRAMS PO (09:00)
[2024-06-16] MEDS: ALDACTONE 25 MG PO (09:00)
[2024-06-16] MEDS: APRESOLINE 25 MG PO (09:00)
[2024-06-16] MEDS: PROTONIX 40 MG PO (09:01)
[2024-06-16] MEDS: ZETIA 10 MG PO (09:01)
[2024-06-16 09:10] LABS: Mean Corp Hgb Conc. 33.3 g/dL (33.0-37.0); Mean Corpuscular Hgb 29.4 pg (27.0-31.0); Mean Corpuscular Volume 88.2 fL (81.0-99.0); Mean Platelet Volume 11.4 fL (7.4-10.4); Platelet Count 247 10^3/uL (130-400); Red Blood Cell Count 4.42 10^6/uL (4.20-5.40); Red Cell Dist. Width 15.5 % (11.5-14.5); White Blood Cell Count 7.7 10^3/uL (4.8-10.8)
[2024-06-16 10:01] LABS: ALT (SGPT) 44 U/L (0-35); AST (SGOT) 32 U/L (14-36); Albumin 4.4 g/dl (3.5-5.0); Alkaline Phosphatase 146 U/L (38-126); Blood Urea Nitrogen 40 mg/dl (7-17); Calcium 9.7 mg/dl (8.4-10.2); Carbon Dioxide 22 mmol/L (22-30); Chloride 103 mmol/L (98-107); Estimated Creatinine Clearance 41 ml/min; Glucose 153 mg/dl (70-99); Potassium 3.8 mmol/L (3.5-5.1); Sodium 138 mmol/L (135-145); Total Bilirubin 0.8 mg/dl (0.2-1.3); Total Protein 7.1 g/dl (6.3-8.2); eGFR 43.96
[2024-06-16 10:04] LABS: Hepatitis B Surface Antigen Negative (Negative)
[2024-06-16 10:21] LABS: Hepatitis A Antibody, Total Positive (Negative); Hepatitis B Core Ab, Total Negative (Negative); Hepatitis B Surface Antibody Negative
--- NOTE | 2024-06-16 10:56 | W.PN.GI.CBS2 ---
Addendum entered and electronically signed by Colette Tracy MD 06/16/24 11:14:
Got an appointment with DOG LICENSER in our office 07/28-my office will call patient to confirm.
Original Note:
Today's Communication / Plan
-
PLAN:
-Elevated LFTs on admission and currently trending down-AST normalized.
Abdominal ultrasound showing mild gallbladder sludge, no evidence of biliary ductal dilation and prior CT scan showing fatty liver.
Multiple etiologies for elevated LFTs including statin use/acute on chronic congestive heart failure/antibiotic use versus other
She does have mild chronic elevation in alkaline phosphatase.
So far serologies for hepatitis A/B/C negative.
LFTs trending down, repeat in 2 weeks again to check for normalization. If continue to be elevated, then will do blood work for underlying liver disease panel at that time. This can be done as an outpatient.
Hold statin for now but wants LFTs normalize, can restart.
-History of colon cancer and she is overdue for colonoscopy.
We will follow-up with her as an outpatient and schedule her for colonoscopy as well.
No further GI workup at this time. Will sign off, please call back if needed.
My office will arrange for follow-up with us in the next 4 to 6 weeks.
Assessment / Plan
-
Pt is a 73yo with hx CAD, prior AR, stent, pacer/defib, cardiomyopathy, colon CA with resection 2012 at [facility] no chemo needed, CHF, COPD, HTN, hypercholesterolemia with admission 06/13 with shortness of breath, nausea, vomiting and chest
pain with initial concern for PNA and acute on chronic HFpEF with elevated troponin on admission. She has been given diuretic during admission now asked to see for elevated LFT's. In review with chronic some chronic alk phos elevation but now
with claude 1.8, AST 51, ALT 85, alk phos [address] imaging with fatty liver and US on admission with Mild gallbladder sludge. Top normal caliber of the common bile duct. Hepatic steatosis.
-elevated LFT's with some chronic alk phos elevation
-imaging with hepatic steatosis
-hx colon CA with prior resection 2012
-acute on chronic HFpEF
-CXR with possible PNA
-BERNICE
-HTN urgency on admission
-mild troponin increase
other med problems:
-family hx colon polyps
-CAD
-hx AR prior stent
-pacer/defib
-Cardiomyopathy
-COPD
-HTN
-hypercholesterolemia
PLAN:
-Elevated LFTs on admission and currently trending down-AST normalized.
Abdominal ultrasound showing mild gallbladder sludge, no evidence of biliary ductal dilation and prior CT scan showing fatty liver.
Multiple etiologies for elevated LFTs including statin use/acute on chronic congestive heart failure/antibiotic use versus other
She does have mild chronic elevation in alkaline phosphatase.
So far serologies for hepatitis A/B/C negative.
LFTs trending down, repeat in 2 weeks again to check for normalization. If continue to be elevated, then will do blood work for underlying liver disease panel at that time. This can be done as an outpatient.
Hold statin for now but wants LFTs normalize, can restart.
-History of colon cancer and she is overdue for colonoscopy.
We will follow-up with her as an outpatient and schedule her for colonoscopy as well.
No further GI workup at this time. Will sign off, please call back if needed.
My office will arrange for follow-up with us in the next 4 to 6 weeks.
Subjective
Subjective
Date of Service: June 16, 2024
Patient reports some wheezing and some shortness of breath . No abdominal pain, nausea or vomiting. Tolerating diet. No bowel movement yet.
Objective
Data Reviewed
Laboratory Data:
Laboratory Results
06/16/24 08:52
06/16/24 08:52
Laboratory Results
Total Bilirubin 0.8 mg/dl (0.2-1.3) 06/16/24 08:52
AST 32 U/L (14-36) 06/16/24 08:52
ALT 44 U/L (0-35) H 06/16/24 08:52
Alkaline Phosphatase 146 U/L (38-126) H 06/16/24 08:52
Vital Signs and I&O:
Vital Signs
Temp Pulse Resp BP Pulse Ox
99.1 F 63 20 128/89 98
06/16/24 07:22 06/16/24 07:22 06/16/24 07:22 06/16/24 07:22 06/16/24 07:22
I&O
06/15/24 06/16/24 06/17/24
06:59 06:59 06:59
Intake Total 840 / 840 780 / 780
Output Total 475 / 475 100 / 100
Balance 365 / 365 680 / 680
Physical Exam
Physical Exam
GI: Soft, Non Distended and Non Tender
[2024-06-16 11:09] LABS: Hepatitis A IgM Antibody Negative (Negative)
--- NOTE | 2024-06-16 11:53 | PN.CDI ---
CDI
- -
CDI:
Physician Documentation Request
Admit Date: 06/13/24 13:38
Dear Doctor Malachi,
H&P states 'Patient was a chest x-rays raising concern for right basilar opacity and pneumonia. She also has associated white count. Apart from that no other infective symptoms. She has also elevated BNP. Unclear if this is all pneumonia but
pending culture data will start on empirical antibiotics'
06/15 progress note 'Rpt CXR to follow on the opacity ,if it all resolved will dc abx '
06/16 cxr impression 'no active cardiopulmonary disease'
Please clarify the following:
____ - pneumonia was present
____ - pneumonia was ruled out
____ - Other
Use of terms such as suspected, likely, concern for, or probable (associated with a specific diagnosis that is being evaluated, monitored, or treated as if it exists) are acceptable and can be coded in the inpatient setting, when documented at the
time of discharge.
Thank you,
Missy Anderson RN, BSN
CDI Specialist
tiger text
Please use your independent medical judgment in providing your response.
[2024-06-16 11:57] VITALS: BP 144/79
[2024-06-16] MEDS: ATIVAN 0.5 MG PO (12:34)
--- NOTE | 2024-06-16 12:57 | W.PN.CD ---
Today's Communication / Plan
-
restart home lasix 40 PO and continue other meds
Impression / Plan
-
Fany Ho is a 73-year-old female with CAD status post CABG in 2019, hypertension, hyperlipidemia, heart failure with preserved ejection fraction, BiV ICD who presents with shortness of breath.
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 Salcido, [facility]
By exam, echo, and CXR, she is euvolemic. Blood pressure has been better controlled. She should resume her home lasix 40 PO. New med on this admission is spironolactone which will hopefully help with both HFpEF and BP control. She will likely
benefit from addition of SGLT2i as an outpatient. From a cardiovascular standpoint, she is stable from discharge. We will sign off at this time; please call with further questions.
# BERNICE, imporved
-overdiuresis +/- addition of spio?
-resume home diuretic
# Shortness of breath
# Acute on chronic HFpEF
-Dyspnea is likely multifactorial with mild HFpEF exacerbation and possible pneumonia
-Last echo in 2022 with LVEF 50-55% and moderate to severe LVH. 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 Will request these records. TTE with normal EF, no evidence of voluem overload. CXR today with clear lungs.
-lasix 40 IV yesterday, hold diuresis today in setting of BERNICE, can restart home 40 PO lasix
-Antibiotics for pneumonia per primary team
-cont. aldactone
-consider SGLT2i addition as outpatient
# Hypertensive urgency versus emergency
-BPs 210s/110s on admission with shortness of breath as above
-better controlled overnight
-Home regimen: Carvedilol 25 mg twice daily, hydralazine 25 mg twice daily
-Continue home regimen + aldactone
# Troponin elevation due to nonischemic myocardial injury
-Troponin elevation is likely due to severely elevated blood pressures +/- HFpEF exacerbation
-Peaked at 0.08. Can stop trending.
# CAD status post CABG
-Continue aspirin, ezetimibe and atorvastatin 40 mg daily
Subjective: Feels slightly improved today; still complaining of phlem. Weight up about ~0.5 kg with no diuretic yesterday.
Physical Exam
Vital Signs/Labs
Vital Signs
Temp Pulse Resp BP Pulse Ox
36.9 C 66 20 144/79 96
06/16/24 11:57 06/16/24 11:57 06/16/24 11:57 06/16/24 11:57 06/16/24 11:57
06/15/24 06/16/24 06/17/24
06:59 06:59 06:59
Actual Weight 82.327 kg 83.149 kg
06/16/24 08:52
06/16/24 08:52
06/13/24
07:07
Spo-A-Cqfurcuygfc Pept 6300
LAB Results
06/13/24 06/14/24
19:49 01:53
Troponin I 0.062 H* 0.048 H*
Physical Exam
Constitutional: No acute distress
Cardiovascular: Rhythm & rate is regular, JVD pressure is normal, Systolic murmur absent and Diastolic murmur absent
Respiratory: Respiratory effort normal and Lungs clear to auscul.
Neuro/Psych: AO x 3
Data Reviewed
-
Date of Service: June 16, 2024
Medical Decision Making: Reviewed Test Results
EKG: Tracing Personally Visualized and interpreted
Echo: Tracing Personally Visualized and interpreted
X-Ray/CT/US/MRI/NUC/PET: Image Personally Visualized and interpreted
Labs: Labs Reviewed by me
[2024-06-16] MEDS: STERILE WATER FOR INJECTION 10 ML IV (13:12)
[2024-06-16] MEDS: ROCEPHIN 1000 MG IV (13:12)
--- NOTE | 2024-06-16 13:57 | CM ---
Addendum entered by Nicol Diggs 06/16/24 15:23:
Fany was seen by PT today and was (I) amb without AD.
Plan: Home with no needs.
Original Note:
CM continues to follow for discharge planning. PT screening has been done; CM requested an order for PT eval to determine if Fany can return home at discharge.
CM will continue to follow for discharge needs pending PT eval.
--- NOTE | 2024-06-16 14:12 | W.PN.HOSP.TC ---
Addendum entered and electronically signed by Rodrigo Ly MD 06/17/24 14:35:
Pneumonia ruled out.
Addendum entered and electronically signed by Rodrigo Ly MD 06/16/24 15:50:
HTN emergency situatioN
Pt presented with Acute CHF decompensation and her admitting vitals shows significant elevationof BP which are now controlled.
Meets [facility]eteria for HTN emergency based on these data points.
BP now better controlled. CHF controlled.
Original Note:
Today's Communication/Plan
-
DC
Assessment / Plan
Assessment / Plan
Shortness of breath-progress in the last 2 weeks now getting worse. She had some cardiac workup as an outpatient including apparently stress test. Patient was a chest x-rays raising concern for right basilar opacity and pneumonia. She also has
associated white count. Apart from that no other infective symptoms. Procal is normal . Flu/covid/blood cx neg .Unclear if this is all pneumonia . Lost wt with diuresis .Rpt CXR shows no focal opacity present suspicion for all fluid. DC further
antibiotics.
Acute CHF decompensation
Most recent echo was in 07/2022 with EF 50-55%
Lost 6 pounds of weight. Diuretics on hold because of elevation of creatinine. Improved creatinine holding diuretics. Cardiology input noted. Transition to oral Lasix home dose and continue with added spironolactone . Echo noted. Discussed
with cardiology-okay for discharge from their standpoint.
Indeterminate troponins-suspected nonischemic myocardial injury. Patient without chest pain.
Left-sided chest pain started today-based on the clinical symptoms sounds musculoskeletal. 4 sets of troponin shows peak of 0.08. Treat symptomatically. Cardiology following
BERNICE
Suspect secondary to overdiuresis. Diuretics on hold.
Improved
Abnormal LFTs with no abdominal pain-unclear etiology. Hold statins. ultrasound of the abdomen shows gallbladder sludge. No stones or CBD dilatation. Improving LFTs.. Continue with the diet. Appreciate GI input-hepatitis serologies
[id number] with GI as an outpatient. Patient advised to hold statin still seen by GI.
Hypertension-resume home medication
Hyperlipidemia hold statins
History of CAD s/p CABG-continue with aspirin and beta-zuleima
Full code
Medically stable for discharge home today.
Total time of discharge 32 minutes
Anticipated Discharge: Today
Subjective/Interval History
-
Date of Service: June 16, 2024
Improved breathing. No chest pains. Walking to the bathroom without any issues.
No fever chills. No cough.
No nausea vomiting or diarrhea.
Objective Data
-
Labs:
Laboratory Results
06/16/24
08:52
WBC 7.7
Hgb 13.0
Hct 39.0
Plt Count 247
Sodium 138
Potassium 3.8
Chloride 103
Carbon Dioxide 22
BUN 40 H
Creatinine 1.3 H
Glucose 153 H
Calcium 9.7
Total Bilirubin 0.8
AST 32
ALT 44 H
Alkaline Phosphatase 146 H
Vital Signs:
Vital Signs
Temp Pulse Resp BP Pulse Ox
98.5 F 66 20 144/79 96
06/16/24 11:57 06/16/24 11:57 06/16/24 11:57 06/16/24 11:57 06/16/24 11:57
I&O
06/15/24 06/16/24 06/17/24
06:59 06:59 06:59
Intake Total 840 / 840 780 / 780
Output Total 475 / 475 100 / 100
Balance 365 / 365 680 / 680
Review of Systems
-
Constitutional: Denies Fever
EENT: Denies Sore Throat
Abdomen/GI: Denies Abdominal Pain
Neuro: Denies Dizzy or Headache
Physical Exam
-
General: No Apparent Distress
HEENT: Moist Mucous Membranes
Respiratory: Clear to Auscultation and Non Labored Respirations; Negative Wheezes, Rales, Crackles or Accessory Resp Muscle Use
Cardiac: Regular Rhythm and S1/S2; Negative Tachycardic
GI: Soft
Neuro: AO x 3
Psych: Calm; Negative Confused
Data Reviewed
-
Diagnostic Radiology: Report Reviewed by me (cxr)
Labs: Labs Reviewed by me
[2024-06-16] MEDS: LASIX 40 MG PO (14:37)
[2024-06-16] MEDS: TYLENOL 650 MG PO (14:37)
--- NOTE | 2024-06-16 15:03 | PTOTSP ---
The patient is independent with ambulation and elevations. Mild shortness of breath with activity - discussed energy conservation techniques. No PT needs identified at this time, will sign off.
--- NOTE | 2024-06-16 15:48 | W.DCSUMMARY ---
Discharge Summary
Discharge Data
Date of Admission: 06/13/24
Date of Discharge: 06/16/24
-
Pending Results: No
Hospital Course
Primary diagnosis:
Acute diastolic heart failure
Hypertensive emergency
Acute kidney injury suspected secondary to diuresis
Abnormal liver function test
Secondary diagnosis:
Benign hypertension
Hyperlipidemia
History of coronary artery disease s/p CABG
Hospital course:
Patient presented with progressive shortness of breath. She recently had some cardiac workup but persist to have symptoms of shortness of breath which really got worse on the day of admission. No prodrome of infective symptoms of respiratory
tract. Her blood pressure was very high with systolic of 201 and diastolic of 131. She had elevated BNP and there was a right basilar opacity. There was slight elevation of white count on admission. She was given the benefit of doubt and treated
with empirical antibiotic for community-acquired pneumonia with a concern was acute heart failure with hypertensive emergency.
She has prior cardiomyopathy which recovered. She has got an ICD in place. She was placed on IV Lasix with improvement in weight of 4 pounds and as well as improvement in blood pressure. She was less symptomatic. No evidence of NV. She had a
repeat echocardiogram which showed EF of 50%. No significant valvular heart disease.
With diuresis her creatinine jumped from 1.1 on admission to 1.7. With holding diuretics it came down to 1.3. Looking at 20[facility] her creatinine was anywhere between 1.3-1.6. When she was symptomatically better she was switched to her home dose
of Lasix 40 mg daily. She says her hydrochlorothiazide was advised to be discontinued recently. Spironolactone was added for heart failure symptoms. To follow with cardiology and consider SGLT2 inhibitors as outpatient. She is on beta-zuleima.
With regards to right basilar opacity she had no prodrome of infective symptoms. A procalcitonin was normal. Chest x-ray showed complete resolution of infiltrate raising more concern for fluid. Antibiotics were discontinued.
When she came in there was abnormal liver function test without abdominal pain. Her bili was 1.8 which normalized to 0.8. Her AST was up at 51 normalized again. ALT was 84 came down to 44. Similarly alkaline phosphatase came down from 2.3-1 46
but she was noted to have chronic elevation of alkaline phosphatase. Ultrasound abdomen showed mild gallbladder sludge hepatic steatosis top normal caliber of common bile duct. Unclear if this is secondary to congestion. Hepatitis serologies were
negative. Was seen by GI who advised her with a follow-up LFTs in office. Advised patient to hold statin still LFTs are all normalized and reviewed by GI.
Consultants on board:
Cardiology-Rafita Adames
GI-Colette Foster
Discharge Plan
-
Patient Disposition: Home (Routine Discharge)
Discharge Diagnosis/Procedures: Acute CHF decompensation
Condition: Fair
Diet: 2 Gram Sodium and Restrict fluids to 64 oz
Activity: As tolerated
Driving Restrictions: As prior to admission
Bathing Restrictions: None
Blood Work: repeat Liver function in 2 weeks -arrange through your PCP
BMP blood work in one week -arrange through your PCP
Specialty Instructions: Weigh Daily- Call MD for wt gain/loss 3 lbs overnight/5 lbs in 1 week
Activity Restrictions/Additional Instructions:
Follow with your cardiology in 1 week
Instructions: *PCP/Other Major Gifts Director Heart Failure Instructions
Referrals:
Calos Camilo MD [Family Provider] - in less than 1 week
Colette Tracy MD [Active] - (follow up 3-4 weeks for elevated liver functions and to review for repeat colonoscopy with hx colon CA)
Prescriptions:
New
spironolactone 25 mg Tablet
25 mg PO DAILY Qty: 30 0RF
Continued
aspirin 81 MG tablet,delayed release (DR/EC)
81 mg PO DAILY
lorazepam 0.5 MG tablet
0.5 mg PO Q8HPRN PRN (Reason: anxiety)
ezetimibe 10 mg Tablet
10 mg PO DAILY
carvedilol 12.5 MG tablet
25 mg PO BID
pantoprazole 40 mg Tablet,Delayed Release (Dr/Ec)
40 mg PO DAILY Qty: 0
furosemide 40 mg Tablet
40 mg PO DAILY
hydralazine 25 mg Tablet
25 mg PO BID
Held
atorvastatin 40 MG tablet
40 mg PO DAILY
Hold Instructions: Resume on 07/29/24. till seen and cleared by GI
Discontinued
hydrochlorothiazide 25 mg Tablet
25 mg PO DAILY 30 Days Qty: 30 0RF
Discharge Orders:
Discharge Patient (As Directed); Ordered 06/16/24
Ordered By: Rodrigo Ly
Discharge Date and Time
Print Language: CZECH
[2024-06-16 15:54] VITALS: BP 141/90
--- NOTE | 2024-06-16 16:07 | CM ---
Fany was evaluated by PT and cleared for discharge.
Plan: Discharge to home with no needs.
== END 2024-06-16 16:43 | disposition home or self-care (01) | DRG 291 ==
LOC: 4 EAST ACU 13:38
PROVIDERS: Nurse Practitioner Adult Health; ADMITTING PHYSICIAN Internal Medicine; CONSULT PHYSICIAN Internal Medicine Gastroenterology; CONSULT PHYSICIAN Student in an Organized Health Care Education/Training Program; EMERGENCY PHYSICIAN Emergency Medicine; FAMILY PHYSICIAN Family Medicine
DX: I11.0 Hypertensive heart disease with heart failure (principal); I50.33 Acute on chronic diastolic (congestive) heart failure; I16.1 Hypertensive emergency; N17.9 Acute kidney failure, unspecified; E78.00 Pure hypercholesterolemia, unspecified; D64.9 Anemia, unspecified; I42.9 Cardiomyopathy, unspecified; I5A Non-ischemic myocardial injury (non-traumatic); I25.10 Atherosclerotic heart disease of native coronary artery without angina pectoris; R79.89 Other specified abnormal findings of blood chemistry; I25.2 Old myocardial infarction; Z87.891 Personal history of nicotine dependence; Z95.810 Presence of automatic (implantable) cardiac defibrillator; Z95.5 Presence of coronary angioplasty implant and graft; Z95.1 Presence of aortocoronary bypass graft; Z85.038 Personal history of other malignant neoplasm of large intestine; Z79.899 Other long term (current) drug therapy; Z79.82 Long term (current) use of aspirin; Z11.52 Encounter for screening for COVID-19
CPT/HCPCS: 71045; 71046; 72072; 76700; 80053; 83605; 83880; 84145; 84484; 85025; 85027; 86704; 86706; 86708; 86709; 86803; 87040; 87340; 87502; 87811; 93005; 93306; 94760; 96365; 96375; 96376; 97161; 99285